=== PATIENT | male | born 1995 | race Caucasian/White ===

== ENCOUNTER 2016-10-04 13:40 | Emergency (ER) | payer OTHER ==
[~2016-10-04] VITALS: Ht 180.3 cm; Wt 86.2 kg
[2016-10-04] MEDS ORDERED: IBUP600T26 PO (15:56)
[2016-10-04] MEDS ORDERED: DOXY100C37 PO (15:56)
--- NOTE | 2016-10-04 15:59 | REP ---
Clinical: Left testicular pain/mass. Technique: Real time skelton scale and color Doppler evaluation using linear high frequency transducer. Findings: The bilateral testicles and right epididymis are essentially normal in contour, size, echogenicity and vascularity without evidence for intratesticular mass lesion, orchitis, or torsion. Incidental note is made of a 3 mm right epididymal head cyst and 4 mm left epididymal head cyst. Heterogeneous enlarged left epididymis with increased vascularity and small left hydrocele suggests acute epididymitis. Left-sided varicoceles are noted measuring up to 4.1 mm diameter. Right testicle measures 4.6 x 1.9 x 2.5 cm. Left testicle measures 4.6 x 2.1 x 2.3 cm. Impression: 1. Findings suggest acute left epididymitis. 2. Further findings include left-sided varicoceles measuring up to 4.1 mm diameter as well as small solitary bilateral epididymal head cysts. Signed by Jean Tristan MD 10/04/2016 03:50 P
[2016-10-04 16:19] VITALS: BP 132/70
== END 2016-10-04 16:21 | disposition home or self-care (01) ==
LOC: M ED 14:58
DX: N45.1 Epididymitis (principal); I86.1 Scrotal varices